=== PATIENT | female | born 1975 | race Two or more races ===

== ENCOUNTER 2020-11-15 08:20 | Emergency (ER) | payer MEDICAID, OTHER ==
[~2020-11-15] VITALS: Ht 165.1 cm; Wt 95.3 kg
[2020-11-15 08:36] VITALS: BP 115/67
== END 2020-11-15 09:13 | disposition home or self-care (01) ==
LOC: ER 08:20
DX: F20.9 Schizophrenia, unspecified (principal); Z76.0 Encounter for issue of repeat prescription